=== PATIENT | male | born 1995 | race Caucasian/White ===

== ENCOUNTER 2018-01-29 17:07 | Emergency (ER) | payer BC ==
--- NOTE | 2018-01-29 17:58 | RAD ---
LEFT KNEE FOUR VIEWS: 01/29/18 INDICATION: Knee injury. COMPARISON: None. FINDINGS: No acute fracture or subluxation is evident. There is mild joint capsular distention. Enthesopathic c hange seen off the tibial tuberosity. IMPRESSION: No acute osseous abnormality. Mild joint capsular distention. POS: [facility]
== END 2018-01-29 20:16 | disposition home or self-care (01) ==
LOC: ERS 17:07
DX: S83.522A Sprain of posterior cruciate ligament of left knee, initial encounter (principal); W01.0XXA Fall on same level from slipping, tripping and stumbling without subsequent striking against object, initial encounter